=== PATIENT | female | born 1970 | race Caucasian/White ===

== ENCOUNTER 2023-01-18 08:19 | Emergency (ER) | payer BC, MEDICAID ==
[~2023-01-18] VITALS: Ht 167.6 cm; Wt 73.9 kg
[~2023-01-18 08:19] MED LIST: ARIP20TA4 PO; LORA-258 PO; SERT100T PO
[2023-01-18 08:20] VITALS: BP_SYST 157; PULSE 95; RESP 18; TEMP 98; O2SAT 98
[2023-01-18] MEDS ORDERED: NIRM1TAB PO (08:37)
[2023-01-18 08:50] VITALS: BP_SYST 157; PULSE 95; RESP 18; TEMP 98; O2SAT 98
== END 2023-01-18 08:51 | disposition home or self-care (01) ==
LOC: SED 08:19
DX: U07.1 COVID-19 (principal); R05.9 Cough, unspecified; R09.81 Nasal congestion; M79.10 Myalgia, unspecified site; Z79.899 Other long term (current) drug therapy
CPT/HCPCS: 99283

== ENCOUNTER 2023-06-08 11:47 | Emergency (ER) | payer BC, MEDICAID ==
[~2023-06-08] VITALS: Ht 160 cm; Wt 63.5 kg
[2023-06-08 11:47] VITALS: BP_SYST 93; PULSE 93; RESP 19; TEMP 98.6; O2SAT 97
[~2023-06-08 11:47] MED LIST changes: +NIRM1TAB PO
[2023-06-08] MEDS ORDERED: MAG-AL HYDROX/SIMETH 30 ML UDC PO ONE (12:30)
[2023-06-08 12:34] LABS: BASOPHILS # (AUTO) 0.1 K/uL (0.0-0.2); BASOPHILS % (AUTO) 0.7 % (0.0-2.0); EOSINOPHILS # (AUTO) 0.4 K/uL (0.0-0.4); EOSINOPHILS % (AUTO) 4.6 % (0.0-4.0); HEMATOCRIT 38.1 % (36-48); HEMOGLOBIN 12.8 g/dL (12.0-16.0); LYMPHOCYTES # (AUTO) 1.6 K/uL (1.0-5.5); LYMPHOCYTES % (AUTO) 20.3 % (20.5-51.5); MEAN CORPUSCULAR HEMOGLOBIN 32 pg (27-31); MEAN CORPUSCULAR HGB CONC 34 % (32-36); MEAN CORPUSCULAR VOLUME 94 fL (79.0-98.0); MONOCYTES # (AUTO) 0.5 K/uL (0.0-1.0); NEUTROPHILS # (AUTO) 5.2 K/uL (1.8-7.7); NEUTROPHILS % (AUTO) 67.4 % (40.0-70.0); PLATELET COUNT (AUTO) 328 K/uL (130-430); RED BLOOD CELL COUNT(AUTO) 4.06 MIL/uL (4.2-6.2); RED CELL DISTRIBUTION WIDTH 13.1 % (9.0-15.0); WHITE BLOOD COUNT (AUTO) 7.7 K/uL (4.8-10.8)
[2023-06-08 13:05] LABS: ANION GAP 11 (5-15); CALCIUM 8.2 mg/dL (8.4-11.0); CARBON DIOXIDE 25 mmol/L (23-29); CHLORIDE 105 mmol/L (98-107); CREATININE 0.62 mg/dL (0.55-1.30); GFR AFRICAN AMERICAN 131 mL/min (>90); POTASSIUM 3.8 mmol/L (3.5-5.1); SODIUM SERUM 141 mmol/L (136-145); UREA NITROGEN, BLOOD 22 mg/dL (8-21)
[2023-06-08 13:07] LABS: GFR NON AFRICAN-AMERICAN 108 mL/min (>90); GLUCOSE 50 mg/dL (74-106)
[2023-06-08 13:13] LABS: ALANINE AMINOTRANSFERASE 19 U/L (12-78); ALBUMIN 3.5 g/dL (3.4-4.8); ASPARTATE AMINOTRANSFERASE 13 U/L (10-37); BILIRUBIN,DIRECT 0.1 mg/dL (0.0-0.3); TOTAL BILIRUBIN 0.3 mg/dL (0.0-1.0); TOTAL PROTEIN, SERUM 6.5 g/dL (6.4-8.3)
[2023-06-08 13:14] LABS: LIPASE 46 U/L (16-77)
[2023-06-08] MEDS ORDERED: ANT30 PO (13:35)
== END 2023-06-08 14:00 | disposition home or self-care (01) ==
LOC: SED 11:47
DX: R07.89 Other chest pain (principal); K21.9 Gastro-esophageal reflux disease without esophagitis; F17.200 Nicotine dependence, unspecified, uncomplicated; F15.90 Other stimulant use, unspecified, uncomplicated; Z79.899 Other long term (current) drug therapy
CPT/HCPCS: 36415; 71045; 80048; 80076; 83690; 84484; 85025; 93005; 99285